=== PATIENT | female | born 1995 | race Hispanic/Latino ===

== ENCOUNTER 2019-01-06 07:19 | Inpatient (IN) | payer BC, OTHER ==
[~2019-01-06] VITALS: Ht 160 cm; Wt 72.6 kg
[2019-01-06] VITALS (16 sets, daily range): BP systolic 93–111; BP diastolic 44–68
[2019-01-06] MEDS ORDERED: CLINDAMYCIN 900 MG/D5% WATER 50 ML IV ONE (07:49)
[2019-01-06] MEDS ORDERED: ONDANSETRON HCL 4 MG/2 ML VIAL ONE ×2 (07:49→16:16)
[2019-01-06] MEDS ORDERED: MORPHINE SULFATE 4 MG/1ML SYG ONE (07:50)
[2019-01-06] MEDS ORDERED: SODIUM CHLORIDE 0.9% 1000ML 1,000 ML IV ONE ×2 (07:50→09:53)
[2019-01-06 08:03] LABS: BASOPHILS % (AUTO) 0.1 % (0.0-5.0); EOSINOPHILS % (AUTO) 0.9 % (0.0-8.0); HEMATOCRIT 39.5 % (36-48); LYMPHOCYTES % (AUTO) 3.8 % (21.0-51.0); MEAN CORPUSCULAR HEMOGLOBIN 32.9 pg (27.0-33.0); MEAN CORPUSCULAR HGB CONC 34.5 g/dL (32.0-36.0); MEAN CORPUSCULAR VOLUME 95.5 fL (79-99); MONOCYTES % (AUTO) 8.2 % (3.0-13.0); PLATELET COUNT (AUTO) 184 K/uL (130-400); RED BLOOD CELL COUNT(AUTO) 4.14 MIL/uL (4.00-5.50); WHITE BLOOD COUNT (AUTO) 17.6 K/uL (4.8-10.8)
[2019-01-06 08:06] LABS: CREATININE 1.1 mg/dL (0.5-1.5); POTASSIUM 3.5 mmol/L (3.5-5.1)
[2019-01-06 08:10] LABS: ALBUMIN 2.9 g/dL (3.5-5.0); BILIRUBIN,TOTAL 0.5 mg/dL (0.2-1.0); INR 0.97 (0.85-1.15); PARTIAL THROMBOPLASTIN TIME 30.1 SEC (26.3-35.5); PROTHROMBIN TIME 10.2 SEC (9.6-11.6); TOTAL PROTEIN, SERUM 7.2 g/dL (6.0-8.3)
[2019-01-06] MEDS ORDERED: VANCOMYCIN 1GM+NS 250ML 0 ML IV ONE (08:47)
[2019-01-06] MEDS ORDERED: KETOROLAC TROMETHAMINE 30MG/ML ONE ×2 (09:47→17:24)
[2019-01-06] MEDS ORDERED: IOHEXOL-350 75 ML VIAL IV ONE (10:07)
[2019-01-06] MEDS ORDERED: SODIUM CHLORIDE 0.9% 1000ML 2,000 ML IV ONE (10:48)
[2019-01-06 10:50] LABS: APPEARANCE,URINE Clear (CLEAR); BILIRUBIN,URINE Negative (NEGATIVE); COLOR,URINE Yellow (YELLOW); GLUCOSE, URINE (UA) Negative (NEGATIVE); KETONES,URINE Negative (NEGATIVE); LEUKOCYTE ESTERASE ,URINE Negative (NEGATIVE); NITRATE,URINE Negative (NEGATIVE); OCCULT BLOOD,URINE Moderate (NEGATIVE); PROTEIN,URINE Negative (NEGATIVE); UROBILINOGEN,URINE 0.2 mg/dL (0.2-1.0)
[2019-01-06 11:00] LABS: BACTERIA,URINE Rare /HPF (None Seen); RBC,URINE 0-1 /HPF (0-1); SQUAMOUS EPITHELIAL CELL,UR Rare /HPF (0-2); WBC,URINE 0-1 /HPF (0-1)
[2019-01-06] MEDS ORDERED: ZOSYN 3.375GM+NS 50ML 50 ML IV ONE (11:26)
[2019-01-06] MEDS ORDERED: VANCOMYCIN 1GM+NS 250ML 250 ML IV ONE (12:18)
[2019-01-06] MEDS ORDERED: HYDROMORPHONE 1 MG/1 ML AMP ONE (12:28)
[2019-01-06] MEDS ORDERED: VANCOMYCIN 1GM+NS 250ML 250 ML IV SCH (13:30)
[2019-01-06] MEDS ORDERED: MIDAZOLAM HCL 1 MG/ML 2ML VIAL ONE (16:14)
[2019-01-06] MEDS ORDERED: SUCCINYLCHOLINE 200MG/10ML SYR ONE (16:14)
[2019-01-06] MEDS ORDERED: ROCURONIUM 10MG/1ML SYR 10 MG/ML ML ONE (16:14)
[2019-01-06] MEDS ORDERED: PROPOFOL 10 MG/ML 20ML VIAL IV ONE (16:14)
[2019-01-06] MEDS ORDERED: LIDOCAINE PF 2% 5ML ABBOJECT ONE (16:14)
[2019-01-06] MEDS ORDERED: FENTANYL CITRATE PF 50 MCG/1 ML 2ML VIAL ONE ×2 (16:15→16:43)
[2019-01-06] MEDS ORDERED: BACITRACIN 50,000 UNIT VIAL ONE (16:31)
[2019-01-06] MEDS ORDERED: LIDOCAINE 1%-EPI 1:100,000 20 ML VIAL IJ ONE (16:44)
[2019-01-06] MEDS ORDERED: BUPIVACAINE/PF 0.25% 30ML VIAL IJ ONE (16:44)
[2019-01-06] MEDS ORDERED: MEPERIDINE-PF 25 MG/ML SYG ONE (17:24)
[2019-01-06] MEDS ORDERED: ONDANSETRON HCL 4 MG/2 ML VIAL IVP PRN (19:00)
[2019-01-06] MEDS: SODIUM CHLORIDE 0.9% 1000ML 1,000 ML IV SCH ×2 (21:07→23:20)
[2019-01-06] MEDS: FAMOTIDINE/PF 20 MG/2 ML VIAL IV SCH (21:07)
[2019-01-06] MEDS: ZOSYN 3.375GM+NS 50ML 50 ML IV SCH (21:07)
[2019-01-07] VITALS: BP 92/51
[2019-01-07 04:00] VITALS: BP 96/52
[2019-01-07 04:37] LABS: HEMATOCRIT 32.3 % (36-48); MEAN CORPUSCULAR HEMOGLOBIN 32.8 pg (27.0-33.0); MEAN CORPUSCULAR HGB CONC 34.3 g/dL (32.0-36.0); MEAN CORPUSCULAR VOLUME 95.8 fL (79-99); PLATELET COUNT (AUTO) 187 K/uL (130-400); RED BLOOD CELL COUNT(AUTO) 3.37 MIL/uL (4.00-5.50); RED CELL DISTRIBUTION WIDTH 13.4 % (11.0-15.5); WHITE BLOOD COUNT (AUTO) 16.8 K/uL (4.8-10.8)
[2019-01-07 05:05] LABS: CREATININE 0.9 mg/dL (0.5-1.5)
[2019-01-07] MEDS: ZOSYN 3.375GM+NS 50ML 50 ML IV SCH ×3 (05:05→20:30)
[2019-01-07] MEDS: SODIUM CHLORIDE 0.9% 1000ML 1,000 ML IV SCH ×2 (05:13→20:31)
[2019-01-07] MEDS: MORPHINE SULFATE 4 MG/1ML SYG IVP PRN ×2 (06:53→17:27)
--- NOTE | 2019-01-07 07:57 | NUR ---
PATIENT UPDATE Pt slept well overnight, afebrile. Medicated this am with Zofran 4 mg first then Morphine 4mg slow iv push before dressing change. Left gluteal incision iodoform packing taken out , wound 4 cm deep, new iodoform packing put in and secured with 4x4 gauze and hypafix tape. Patient tolerated the procedure well.
[2019-01-07 08:00] VITALS: BP 95/56
[2019-01-07] MEDS: FAMOTIDINE/PF 20 MG/2 ML VIAL IV SCH ×2 (08:40→20:32)
[2019-01-07 11:00] VITALS: BP 96/59
--- NOTE | 2019-01-07 14:57 | NUR ---
DCP CM met with pt discussed dc plans. Pt is independent prior to admission, lives at home with parents. Denies any equipments/services. Pt feels safe to go back home, still drives and works, mother able to assist with transportation and needs as necessary. DC plan to home once stable. CM to cont to follow up. Addendum: 01/07/19 at 1458 by DON PARISI LVN CM Amended: Links added.
[2019-01-07 16:00] VITALS: BP 101/60
[2019-01-07] MEDS: CLINDAMYCIN 900 MG/D5% WATER 50 ML IV SCH (17:22)
[2019-01-07 18:25] LABS: CRP QUANTITATIVE 281.2 mg/L (0.00-9.0)
[2019-01-07 20:00] VITALS: BP 117/75
[2019-01-08] MEDS: CLINDAMYCIN 900 MG/D5% WATER 50 ML IV SCH ×5 (00:53→23:34)
[2019-01-08 04:00] VITALS: BP 93/58
[2019-01-08] MEDS: SODIUM CHLORIDE 0.9% 1000ML 1,000 ML IV SCH ×2 (05:25→17:24)
[2019-01-08] MEDS: ZOSYN 3.375GM+NS 50ML 50 ML IV SCH ×3 (06:43→21:03)
[2019-01-08] MEDS: MORPHINE SULFATE 4 MG/1ML SYG IVP PRN (06:53)
[2019-01-08 08:00] VITALS: BP 101/64
[2019-01-08] MEDS: FAMOTIDINE/PF 20 MG/2 ML VIAL IV SCH ×2 (10:35→21:04)
[2019-01-08] MEDS: ENOXAPARIN SODIUM 30 MG/0.3 ML SQ SCH (10:35)
[2019-01-08] MEDS ORDERED: KETOROLAC TROMETHAMINE 30MG/ML IM PRN (12:45)
[2019-01-08] MEDS: KETOROLAC TROMETHAMINE 30MG/ML IV PRN ×2 (13:00→21:03)
--- NOTE | 2019-01-08 15:49 | NUR ---
[facility] CONSULT PATIENT ASSESSED REQUESTED: PATIENT PRESENTS WITH LEFT GLUTEAL ABSCESS; S/P I/D ON 01/06/[address] GOYAL; [facility] RECOMMENDATIONS SUBMITTED. Addendum: 01/08/19 at 1552 by CHILO JOSEPH LVN LVN W Amended: Links added.
[2019-01-08 17:00] VITALS: BP 99/60
[2019-01-08 19:00] VITALS: BP 116/75
[2019-01-08 23:00] VITALS: BP 98/53
--- NOTE | 2019-01-08 23:57 | NUR ---
Nursing Note- Informed Hospitalist Sejal that pt states she is having burning while urinating. No new orders at this time since she is already on antibiotics and urine has already been collected on 01/06/19
[2019-01-09 03:00] VITALS: BP 82/47
[2019-01-09] MEDS: SODIUM CHLORIDE 0.9% 1000ML 1,000 ML IV SCH ×2 (03:08→11:20)
[2019-01-09] MEDS: ZOSYN 3.375GM+NS 50ML 50 ML IV SCH ×3 (04:35→20:23)
[2019-01-09] MEDS: MORPHINE SULFATE 4 MG/1ML SYG IVP PRN (04:38)
[2019-01-09] MEDS: CLINDAMYCIN 900 MG/D5% WATER 50 ML IV SCH ×3 (05:05→18:27)
[2019-01-09 05:54] LABS: BASOPHILS % (AUTO) 0.4 % (0.0-5.0); EOSINOPHILS % (AUTO) 1.7 % (0.0-8.0); HEMATOCRIT 29.9 % (36-48); MEAN CORPUSCULAR HEMOGLOBIN 33.8 pg (27.0-33.0); MEAN CORPUSCULAR HGB CONC 34.9 g/dL (32.0-36.0); MEAN CORPUSCULAR VOLUME 96.7 fL (79-99); NEUTROPHILS % (AUTO) 62.9 % (40.0-77.0); NUCLEATED RED BLOOD CELLS 0.1 % (0.0-0.19); PLATELET COUNT (AUTO) 252 K/uL (130-400); RED BLOOD CELL COUNT(AUTO) 3.09 MIL/uL (4.00-5.50); RED CELL DISTRIBUTION WIDTH 13.6 % (11.0-15.5); WHITE BLOOD COUNT (AUTO) 8.7 K/uL (4.8-10.8)
[2019-01-09 06:19] LABS: CHLORIDE 106 mmol/L (101-111); CREATININE 0.8 mg/dL (0.5-1.5); POTASSIUM 3.4 mmol/L (3.5-5.1); SODIUM SERUM 141 mmol/L (136-145); UREA NITROGEN, BLOOD 10 mg/dL (7-18)
[2019-01-09 06:26] LABS: CARBON DIOXIDE 29 mmol/L (21-32); GLUCOSE,RANDOM 99 mg/dL (70-105)
--- NOTE | 2019-01-09 06:50 | NUR ---
Nursing Notes paged about K 3.4, waiting for call back
[2019-01-09 07:03] LABS: ERYTHROCYTE SEDIMENTATION RATE 63 MM/HR (0-20)
[2019-01-09 08:00] VITALS: BP 101/63
[2019-01-09] MEDS: ENOXAPARIN SODIUM 30 MG/0.3 ML SQ SCH (08:34)
[2019-01-09] MEDS: KETOROLAC TROMETHAMINE 30MG/ML IV PRN ×3 (08:35→22:25)
[2019-01-09] MEDS: FAMOTIDINE/PF 20 MG/2 ML VIAL IV SCH ×2 (08:35→20:24)
[2019-01-09 12:00] VITALS: BP 111/63
[2019-01-09] MEDS ORDERED: LIDOCAINE HCL-MPF 1% 2ML VIAL IV PRN (15:00)
[2019-01-09] MEDS ORDERED: POTASSIUM CHLORIDE 20 MEQ ERTAB PO PRN (15:00)
[2019-01-09] MEDS ORDERED: POTASSIUM CHLORIDE 20MEQ/100ML 100 ML IV PRN (15:00)
[2019-01-09] MEDS ORDERED: POTASSIUM CHLORIDE 10% ELIXIR 20 MEQ/15 ML UDCUP PO PRN (15:00)
[2019-01-09 16:00] VITALS: BP 109/62
[2019-01-09 19:00] VITALS: BP 100/58
[2019-01-09 23:00] VITALS: BP 106/64
[2019-01-10] MEDS: SODIUM CHLORIDE 0.9% 1000ML 1,000 ML IV SCH ×3 (01:12→17:20)
[2019-01-10] MEDS: CLINDAMYCIN 900 MG/D5% WATER 50 ML IV SCH ×4 (01:12→20:33)
[2019-01-10 03:00] VITALS: BP 94/52
[2019-01-10] MEDS: HYDROCODONE/ACETAMINOPHEN 5/325 MG TAB PO PRN (03:16)
[2019-01-10] MEDS: ZOSYN 3.375GM+NS 50ML 50 ML IV SCH ×3 (04:47→21:00)
[2019-01-10 06:26] LABS: HEMATOCRIT 31.5 % (36-48); MEAN CORPUSCULAR HEMOGLOBIN 33.6 pg (27.0-33.0); MEAN CORPUSCULAR HGB CONC 35.2 g/dL (32.0-36.0); MEAN CORPUSCULAR VOLUME 95.5 fL (79-99); PLATELET COUNT (AUTO) 321 K/uL (130-400); RED CELL DISTRIBUTION WIDTH 13.7 % (11.0-15.5); WHITE BLOOD COUNT (AUTO) 9.1 K/uL (4.8-10.8)
[2019-01-10 06:39] LABS: CREATININE 0.8 mg/dL (0.5-1.5); POTASSIUM 3.8 mmol/L (3.5-5.1)
[2019-01-10 07:30] VITALS: BP 93/52
[2019-01-10 07:39] LABS: ERYTHROCYTE SEDIMENTATION RATE 55 MM/HR (0-20)
--- NOTE | 2019-01-10 08:00 | NUR ---
PT AAO X 3 REVIEW PLAN OF CARE. ASSESSMENT TO HER LT BUTTOCK DRSG . DONE . PAIN STATUS. OKAY. DRSG DRY AND CLEAN. CALL LIGHT IN REACH.
[2019-01-10 08:41] LABS: BAND NEUTROPHILS % (MANUAL) 3 % (0-2); EOSINOPHILS % (MANUAL) 3 % (1-6); LYMPHOCYTES % (MANUAL) 38 % (22-44); MONOCYTES % (MANUAL) 5 % (2-9); PLATELET MORPHOLOGY COMMENT ADEQUATE; REACTIVE LYMPHOCYTES 1 % (0-0); SEGMENTED NEUTROPHILS % 50 % (40-70)
[2019-01-10] MEDS: ENOXAPARIN SODIUM 30 MG/0.3 ML SQ SCH ×2 (09:00→09:14)
[2019-01-10] MEDS: FAMOTIDINE/PF 20 MG/2 ML VIAL IV SCH ×2 (09:12→20:33)
--- NOTE | 2019-01-10 09:33 | NUR ---
NO LOVENOX 30 MG SQ , DUE TO PENDING SURGERY TODAY... Addendum: 01/11/19 at 1952 by RAYMUNDO OWENS RN RN CHARTED NOTES ON WRONG PT . ON 01/10/19 AT 7011 NOTE ADDENDUM .
[2019-01-10] MEDS: KETOROLAC TROMETHAMINE 30MG/ML IV PRN ×2 (10:33→20:43)
[2019-01-10 11:00] VITALS: BP 96/55
[2019-01-10 16:00] VITALS: BP 91/52
[2019-01-10 20:29] VITALS: BP 125/69
[2019-01-10 23:47] VITALS: BP 96/54
[2019-01-11] MEDS: CLINDAMYCIN 900 MG/D5% WATER 50 ML IV SCH ×3 (01:53→15:12)
[2019-01-11] MEDS: HYDROCODONE/ACETAMINOPHEN 5/325 MG TAB PO PRN ×2 (01:54→15:12)
[2019-01-11 03:25] VITALS: BP 96/54
[2019-01-11] MEDS: ZOSYN 3.375GM+NS 50ML 50 ML IV SCH ×2 (06:04→12:39)
[2019-01-11] MEDS: KETOROLAC TROMETHAMINE 30MG/ML IV PRN (06:56)
[2019-01-11 08:23] VITALS: BP 106/57
[2019-01-11] MEDS: FAMOTIDINE/PF 20 MG/2 ML VIAL IV SCH (09:29)
[2019-01-11] MEDS: ENOXAPARIN SODIUM 30 MG/0.3 ML SQ SCH (09:30)
--- NOTE | 2019-01-11 10:00 | NUR ---
DRSG DONE PER WOUND CARE . RECOMMANDTION . . DRSG CHANGE DONE .WITH THE PACKING REMOVE AND CLEANSE WOUND WITH SALINE AND PAD DRY AND INSERTIONS OF IDOFORM GAUZE AND 4X4 , AND ABD PAD AND SECURE TO AREA. SITE CLEAN , GOOD TISSUE SURROUNDING SOFT TO TOUCH. TOLERATE WELL .
[2019-01-11 12:21] VITALS: BP 107/55
--- NOTE | 2019-01-11 13:00 | NUR ---
DRSG TO HER LT BUTTOCK DONE .WITH MOTHER AT THE BEDSIDE EDUCATION REVIEW ON HOW TO CHANGE DRSG . . MOTHER STATED THAT SHE WOULD DO WOUND DRSG AT HOME.. . DIRECTION OF INSTRUCTION DONE. STATED THAT SHE WOULD ABLE TO FOLLOW CARE AT HOME .
[2019-01-11] MEDS: SODIUM CHLORIDE 0.9% 1000ML 1,000 ML IV SCH ×2 (13:20→15:13)
[2019-01-11 16:44] VITALS: BP 111/51
--- NOTE | 2019-01-11 17:30 | NUR ---
DR. SANTORO HERE AND SPOKE WITH MOTHER AND PT .REGARDING DISCHARGE CARE AND ASSESSMENT DONE TO HER LT BUTTOCK , WOUND. REVIEW DISCHARGE ANTIBOTICS AND FOLLOW UP WITH PRIVATE DR. RAGLAND AND DR. GOYAL . AND REVIEW QUESTIONS .
[2019-01-11] MEDS ORDERED: LEVO500T2 PO (17:44)
[2019-01-11] MEDS ORDERED: IBUP-2077 PO (17:44)
--- NOTE | 2019-01-11 19:00 | NUR ---
DISCHARGE SUMMARY RE VIEW WITH PT. AND MOTHER , AND EDUCATION OF WOUND CARE PROVIDED REVIEW QUESTIONS AND SL TO HER RT HAND DC ,WITH NO REDNESS NOTED .SM PRESSURE DRSG APPLICATION ON . . DISCHARGE HOME WITH MOTHER .
== END 2019-01-11 19:00 | disposition home or self-care (01) | DRG 854 ==
LOC: EDH 07:19 → 3DH 13:20
PROVIDERS: ADMIT Family Medicine; ATTEND Family Medicine
PROC: 0D9P0ZZ Drainage of Rectum, Open Approach (ICD-10-PCS; principal; 2019-01-08)
DX: A41.9 Sepsis, unspecified organism (principal); L02.31 Cutaneous abscess of buttock; L03.317 Cellulitis of buttock; K61.1 Rectal abscess
CPT/HCPCS: 36415; 74177; 80048; 80053; 81001; 83605; 84145; 84703; 85025; 85027; 85610; 85651; 85730; 86140; 87040; 87070; 87076; 87077; 87186; 87205; A6266; G0378; J0330; J1170; J1650; J1885; J2001; J2175; J2250; J2270; J2405; J2543; J2704; J3010; J3370; J3490; J7030; J7120; Q9967

== ENCOUNTER 2019-04-16 19:18 | Emergency (ER) | payer OTHER ==
[~2019-04-16 19:18] MED LIST: IBUP-2077 PO; LEVO500T2 PO
[2019-04-16] MEDS ORDERED: CLINDAMYCIN HCL 150 MG CAP ONE (20:41)
== END 2019-04-16 21:00 | disposition home or self-care (01) ==
LOC: EDH 19:18
DX: L02.31 Cutaneous abscess of buttock (principal)
CPT/HCPCS: 87070; 87077; 87186

== ENCOUNTER 2019-04-29 07:33 | Day surgery (SDC) | payer OTHER ==
[2019-04-27 17:43] LABS: BASOPHILS % (AUTO) 0.3 % (0.0-5.0); EOSINOPHILS % (AUTO) 0.7 % (0.0-8.0); HEMATOCRIT 41.7 % (36-48); LYMPHOCYTES % (AUTO) 32.2 % (21.0-51.0); MEAN CORPUSCULAR HEMOGLOBIN 32.1 pg (27.0-33.0); MEAN CORPUSCULAR HGB CONC 34.3 g/dL (32.0-36.0); MEAN CORPUSCULAR VOLUME 93.7 fL (79-99); MONOCYTES % (AUTO) 4.8 % (3.0-13.0); NEUTROPHILS % (AUTO) 61.8 % (40.0-77.0); PLATELET COUNT (AUTO) 335 K/uL (130-400); RED BLOOD CELL COUNT(AUTO) 4.45 MIL/uL (4.00-5.50); RED CELL DISTRIBUTION WIDTH 11.9 % (11.0-15.5); WHITE BLOOD COUNT (AUTO) 8.6 K/uL (4.8-10.8)
[2019-04-29] VITALS (15 sets, daily range): BP systolic 96–114; BP diastolic 48–66
[~2019-04-29] VITALS: Ht 157.5 cm; Wt 73.1 kg
[~2019-04-29 07:33] MED LIST changes: -IBUP-2077 PO; +LACTATED RINGERS 1000ML 1,000 ML IV SCH; -LEVO500T2 PO
[2019-04-29] MEDS ORDERED: PROPOFOL 10 MG/ML 20ML VIAL IV ONE (08:41)
[2019-04-29] MEDS ORDERED: LIDOCAINE PF 2% 5ML ABBOJECT ONE (08:41)
[2019-04-29] MEDS ORDERED: FENTANYL CITRATE PF 50 MCG/1 ML 2ML VIAL ONE (08:42)
[2019-04-29] MEDS ORDERED: ROCURONIUM 10MG/1ML SYR 10 MG/ML ML ONE (08:42)
[2019-04-29] MEDS ORDERED: ONDANSETRON HCL 4 MG/2 ML VIAL ONE (08:42)
[2019-04-29] MEDS ORDERED: MIDAZOLAM HCL 1 MG/ML 2ML VIAL ONE (08:43)
[2019-04-29] MEDS ORDERED: MEPERIDINE-PF 25 MG/ML SYG ONE (09:11)
[2019-04-29] MEDS ORDERED: BUPIVACAINE/PF 0.25% 30ML VIAL IJ ONE (09:14)
[2019-04-29] MEDS ORDERED: GLYCOPYRROLATE 1 MG/5 ML SYRINGE ONE (09:23)
[2019-04-29] MEDS ORDERED: NEOSTIGMINE 5MG/5ML SYR IV ONE (09:23)
--- NOTE | 2019-04-29 09:28 | NUR ---
VALUABLES: ONE LARGE WHITE COLOR COATED EARRING REMOVED FROM RIGHT SIDE EAR. ONE SMALL LOOP WHITE COLOR COATED EARRING REMOVED FROM LEFT SIDE NOSE, TWO SMALL WHITE COLOR COATED EARRINGS REMOVED FROM LEFT SIDE EAR. THREE SMALL WHITE COLOR COATED EARRINGS LEFT ON TO LEFT SIDE EAR PER PATIENTS REFUSAL TO REMOVE. EARRINGS THAT WERE REMOVED GIVEN TO MOTHER.
--- NOTE | 2019-04-29 10:45 | NUR ---
RECEIVE PT RECEIVED FROM PACU VIA STRETCHER AWAKE ALERT ORIENTED X3. STABLE. NO COMPLAINTS MADE. RECTAL DRESSING DRY AND INTACT, NO BLEEDING NOTED, DENIES PAIN. WILL CONTINUE TO MONITOR PT, WILL CALL MOTHER TO COME IN TO ROOM. CALL ESTRADA WITHIN REACH.
--- NOTE | 2019-04-29 11:23 | NUR ---
DISCHARGE PT DISCHARGED VIA WHEELCHAIR WITH MOTHER. PT STABLE. RECTAL DRESSING REMAINS DRY AND INTACT, NO BLEEDING NOTED. DENIES PAIN. TOLERATED ORAL FLUIDS WELL. DISCHARGE INSTRUCTIONS GIVEN TO MOTHER AND PT, VERBALIZED UNDERSTANDING.
== END 2019-04-29 11:23 | disposition home or self-care (01) ==
LOC: DAH 07:33
PROVIDERS: ATTEND Surgery
DX: K60.3 Anal fistula (principal); Z98.890 Other specified postprocedural states
CPT/HCPCS: 36415; 46270; 84703; 85025; A4215; A4221; A4222; A4223; A4649; A4663; J2001; J2175; J2250; J2405; J2704; J2710; J3010; J3490 ×2; J7120

== ENCOUNTER 2019-05-18 20:34 | Emergency (ER) | payer OTHER ==
[2019-05-18] MEDS ORDERED: ACETAMINOPHEN EXTRA STRENGTH 500 MG TABLET ONE (21:10)
== END 2019-05-18 22:07 | disposition home or self-care (01) ==
LOC: EDH 20:34
DX: B34.9 Viral infection, unspecified (principal)
CPT/HCPCS: 87804